=== PATIENT | female | born 1950 | race Caucasian/White ===

== ENCOUNTER 2018-07-12 18:50 | Observation (INO) | payer MEDICARE, BC ==
[~2018-07-12] VITALS: Ht 157.5 cm; Wt 80.7 kg
[2018-07-12 19:34] LABS: BASOPHILS # (AUTO) 0.01 x10^3/uL (0-0.1); BASOPHILS % (AUTO) 0 % (0-1); EOSINOPHILS # (AUTO) 0.01 x10^3/uL (0-0.4); EOSINOPHILS % (AUTO) 0 % (1-7); LYMPHOCYTES # (AUTO) 0.57 x10^3/uL (1-3.4); LYMPHOCYTES % (AUTO) 9 % (22-44); MD NO; MEAN CORPUSCULAR HEMOGLOBIN 29.6 pg (27.0-34.8); MEAN CORPUSCULAR HGB CONC 33.6 g/dL (32.4-35.8); MEAN PLATELET VOLUME 7.7 fL (7.4-10.4); MONOCYTES # (AUTO) 0.16 x10^3/uL (0.2-0.8); MONOCYTES % (AUTO) 3 % (2-9); NEUTROPHILS # (AUTO) 5.55 x10^3/uL (1.8-6.8); NEUTROPHILS % (AUTO) 88 % (42-75); PLATELET COUNT 237 x10^3/uL (130-400); RED CELL DISTRIBUTION WIDTH 13.4 % (9.6-15.2)
[2018-07-12 19:42] LABS: ALBUMIN 3.9 g/dL (3.4-5.0); ANION GAP 10 mmol/L (5-15); CALCIUM 9.4 mg/dL (8.5-10.1); CHLORIDE 110 mmol/L (98-107); CREATININE 0.67 mg/dL (0.55-1.02)
[2018-07-12 19:46] LABS: TROPONIN I < 0.015 ng/mL (0.000-0.045)
[2018-07-12] MEDS ORDERED: MECLIZINE CHEWABLE 25 MG TAB ONE (20:31)
[2018-07-12] MEDS ORDERED: MECLIZINE CHEWABLE 25 MG TAB PO ONE (21:00)
[2018-07-12] MEDS ORDERED: RANI150T4 PO (21:39)
[2018-07-12] MEDS ORDERED: LISI-167 PO (21:39)
[2018-07-12] MEDS ORDERED: FEXO180T72 PO (21:39)
[2018-07-12] MEDS ORDERED: HYDR50TA13 PO (21:39)
[2018-07-12] MEDS ORDERED: GABA300C10 PO (21:40)
[2018-07-12] MEDS ORDERED: DIAZEPAM 5 MG TABLET ONE (21:47)
[2018-07-12] MEDS ORDERED: DIAZEPAM 5 MG TABLET PO ONE (22:00)
[2018-07-12] MEDS ORDERED: SODIUM CHLORIDE 0.9% 1,000 ML IV SCH (22:33)
[2018-07-12] MEDS ORDERED: ONDANSETRON 2MG/ML, 2ML IVPush PRN (23:00)
[2018-07-12] MEDS ORDERED: ACETAMINOPHEN 325 MG TABLET PO PRN (23:00)
[2018-07-12] MEDS ORDERED: ENOXAPARIN 40 MG/0.4 ML SQ SCH (23:00)
[2018-07-12] MEDS ORDERED: DIAZEPAM 5 MG TABLET PO PRN (23:00)
[2018-07-12] MEDS ORDERED: MECLIZINE CHEWABLE 25 MG TAB PO SCH (23:00)
[2018-07-13 00:18] VITALS: BP 139/74
[2018-07-13 02:22] VITALS: BP 137/66
[2018-07-13 07:00] VITALS: BP 124/68
[2018-07-13 07:06] LABS: ALBUMIN 3.4 g/dL (3.4-5.0); ANION GAP 5 mmol/L (5-15); CHLORIDE 113 mmol/L (98-107); CREATININE 0.79 mg/dL (0.55-1.02)
[2018-07-13] MEDS ORDERED: hydrOXyzine 50MG TABLET PO SCH (09:00)
[2018-07-13] MEDS ORDERED: MECLIZINE 12.5 MG TABLET PO PRN (09:00)
[2018-07-13] MEDS ORDERED: LORATADINE 10 MG TABLET PO SCH (09:00)
[2018-07-13] MEDS ORDERED: MECLIZINE 12.5 MG TABLET PO SCH (09:00)
[2018-07-13] MEDS ORDERED: LISINOPRIL 10 MG TABLET PO SCH (09:00)
[2018-07-13] MEDS ORDERED: FAMOTIDINE 20 MG TABLET PO SCH (09:00)
[2018-07-13 14:15] VITALS: BP 133/77
[2018-07-13] MEDS ORDERED: MECL12.52 PO (16:13)
[2018-07-13] MEDS ORDERED: ONDA4TAB7 PO (16:13)
== END 2018-07-13 17:08 | disposition home or self-care (01) ==
LOC: ED 19:46 → 3NE 22:33 → INTOOBSV 22:51 → UNDOADMOB 22:51 → UNDODISOB 07-13 17:08
PROVIDERS: ADMIT Internal Medicine; ATTEND Internal Medicine
DX: R42 Dizziness and giddiness (principal); M19.90 Unspecified osteoarthritis, unspecified site; M54.9 Dorsalgia, unspecified; G89.29 Other chronic pain; H83.09 Labyrinthitis, unspecified ear; I10 Essential (primary) hypertension; Z82.49 Family history of ischemic heart disease and other diseases of the circulatory system; Z83.3 Family history of diabetes mellitus; Z90.710 Acquired absence of both cervix and uterus
CPT/HCPCS: 36415; 70551; 71045; 80048; 82040; 83880; 84484; 85025; 93005; 96360; 96361; 97162; 99285; G0378; G8978; G8979; G8980; J7030